=== PATIENT | male | born 1965 | race Two or more races ===

== ENCOUNTER 2016-11-04 14:21 | Emergency (ER) | payer BC, OTHER ==
[~2016-11-04] VITALS: Ht 172.7 cm; Wt 98.2 kg
[2016-11-04] MEDS ORDERED: MORPHINE SULFATE 4 MG/ML, 1ML IVPush PRN (14:30)
[2016-11-04] MEDS ORDERED: ONDANSETRON 2MG/ML, 2ML IVPush ONE (14:30)
[2016-11-04] MEDS ORDERED: SODIUM CHLORIDE FLUSH 10ML SYR IVF ONE (14:30)
[2016-11-04 14:59] LABS: HEMATOCRIT 46.5 % (39.2-51.8); HEMOGLOBIN 15.7 g/dL (13.7-18.0); WHITE BLOOD COUNT 8.5 x10^3/uL (3.4-10)
[2016-11-04 15:03] LABS: BLOOD UREA NITROGEN 17 mg/dL (7-18)
[2016-11-04] MEDS ORDERED: MORPHINE SULFATE 4 MG/ML, 1ML ONE (15:34)
[2016-11-04] MEDS ORDERED: ONDANSETRON 2MG/ML, 2ML ONE (15:34)
[2016-11-04 16:22] LABS: PATH.CAST-FLAG NOT PRESENT; SPERM-FLAG NOT PRESENT; SRC-FLAG NOT PRESENT; XTAL-FLAG NOT PRESENT; YLC-FLAG NOT PRESENT
[2016-11-04] MEDS ORDERED: KETOROLAC 30 MG/1 ML IVPush ONE (16:30)
[2016-11-04 17:08] VITALS: BP 136/74
== END 2016-11-04 17:11 | disposition home or self-care (01) ==
LOC: ED 16:45
DX: N20.2 Calculus of kidney with calculus of ureter (principal); R31.9 Hematuria, unspecified; I10 Essential (primary) hypertension; Z87.442 Personal history of urinary calculi
CPT/HCPCS: 36415; 74176; 80048; 81001; 82040; 85025; 96374; 96375; 99285; J2405